=== PATIENT | female | born 1935 | race Caucasian/White ===

== ENCOUNTER 2021-08-02 17:31 | Inpatient (IN) | payer MEDICARE ==
[~2021-08-02] VITALS: Ht 157.5 cm; Wt 37.2 kg
[2021-08-02] MEDS ORDERED: 0.9% SODIUM CHLORIDE 10 ML SYRINGE IVP PRN (19:00)
[2021-08-02 19:37] LABS: BASOPHILS % (AUTO) 0.6 % (0.0-2.0); EOSINOPHILS % (AUTO) 1.5 % (1.0-6.0); HEMATOCRIT 36.9 % (36-46); HEMOGLOBIN 12.3 g/dL (12.0-16.0); LYMPHOCYTES # (AUTO) 1.5 K/uL (1.0-4.8); LYMPHOCYTES % (AUTO) 21.4 % (22.0-44.0); MEAN CORPUSCULAR HEMOGLOBIN 31.8 pg (26.0-34.0); MEAN CORPUSCULAR HGB CONC 33.3 G/dL (31.0-37.0); MEAN CORPUSCULAR VOLUME 96 fL (80-100); MONOCYTES # (AUTO) 0.6 K/uL (0.1-1.0); NEUTROPHILS # (AUTO) 4.7 K/uL (1.8-7.7); NEUTROPHILS % (AUTO) 67.5 % (40.0-70.0); PLATELET COUNT (AUTO) 174 K/uL (150-450); RED BLOOD CELL COUNT(AUTO) 3.85 MIL/uL (4.00-5.20); RED CELL DISTRIBUTION WIDTH 13.5 % (11.5-14.5)
[2021-08-02 19:44] LABS: ANION GAP 6 mmol/L (8-16); CALCIUM, TOTAL 9.1 mg/dL (8.8-10.5); CARBON DIOXIDE 29 mmol/L (22-29); CHLORIDE 105 mmol/L (98-107); CREATININE 0.95 mg/dL (0.60-1.30); GLOMERULAR FILTR. RATE CALC 56 mL/min (>60); GLUCOSE,RANDOM 99 mg/dL (70-110); POTASSIUM 3.6 mmol/L (3.5-5.1); SODIUM SERUM 140 mmol/L (136-145); UREA NITROGEN, BLOOD 28 mg/dL (7-18)
[2021-08-02 19:52] LABS: LACTIC ACID 1.1 mmol/L (0.4-2.0)
[2021-08-02 19:53] LABS: AMMONIA < 10 umol/L (11-32); TROPONIN I < 0.02 ng/mL (0.00-0.05)
[2021-08-02 20:04] LABS: B-TYPE NATRIURETIC PEPTIDE 146 pg/mL (0-100)
[2021-08-02 20:06] LABS: COVID AG,FIA SOURCE NASOPHARYNGEAL
[2021-08-02 20:08] LABS: ALANINE AMINOTRANSFERASE 29 U/L (12-78); ALBUMIN 3.4 g/dL (3.4-5.0); ALKALINE PHOSPHATASE 78 U/L (46-116); ASPARTATE AMINOTRANSFERASE 30 U/L (15-37); BILIRUBIN,TOTAL 0.4 mg/dL (0.1-1.0); CREATINE KINASE, TOTAL ONLY 451 U/L (26-192); FREE T4 (FREE THYROXINE) 0.97 ng/dL (0.76-1.46); LIPASE 302 U/L (73-393); THYROID STIMULATING HORMONE 2.14 uIU/mL (0.36-3.74); TOTAL PROTEIN, SERUM 6.7 g/dL (6.4-8.2)
[2021-08-02 20:50] LABS: APPEARANCE,URINE CLEAR (CLEAR); BILIRUBIN,URINE NEGATIVE (NEGATIVE); GLUCOSE, URINE (UA) NEGATIVE (NEGATIVE); KETONES,URINE NEGATIVE (NEGATIVE); LEUKOCYTE ESTERASE ,URINE NEGATIVE (NEGATIVE); NITRATE,URINE NEGATIVE (NEGATIVE); OCCULT BLOOD,URINE SMALL (NEGATIVE); PH,URINE 6.5 (5.0-8.0); PROTEIN,URINE NEGATIVE (NEGATIVE); UROBILINOGEN,URINE 0.2 mg/dL (<=1.0)
[2021-08-02 20:55] LABS: AMPHET/METH SCREEN,URINE NEGATIVE (NEGATIVE); BARBITURATE SCREEN, URINE NEGATIVE (NEGATIVE); BENZODIAZEPINES SCREEN,URINE NEGATIVE (NEGATIVE); CANNABINOID SCREEN,URINE NEGATIVE (NEGATIVE); COCAINE SCREEN,URINE NEGATIVE (NEGATIVE); METHADONE SCREEN, URINE NEGATIVE (NEGATIVE); OPIATE SCREEN,URINE NEGATIVE (NEGATIVE)
[2021-08-02 21:00] LABS: PHENCYCLIDINE SCREEN,URINE NEGATIVE (NEGATIVE)
[2021-08-02 21:01] LABS: BACTERIA,URINE Rare /HPF (None Seen); SQUAMOUS EPITHELIAL CELL,UR Few /LPF (None Seen); WBC,URINE 0-2 /HPF (0-5)
[2021-08-02] MEDS ORDERED: QUEtiapine FUMARATE 25 MG TABLET PO ONE (21:30)
[2021-08-02] MEDS ORDERED: ZIPRASIDONE MESYLATE 20 MG/VIAL IM ONE (22:45)
[2021-08-03 03:14] LABS: CHOLESTEROL 168 mg/dL (131-200); HDL CHOLESTEROL 82 mg/dL (40-60); LDL CHOL (CALC.) 80 mg/dL (0-130); TRIGLYCERIDES 31 mg/dL (15-150)
[2021-08-03 08:45] VITALS: BP 138/90
[2021-08-03] MEDS ORDERED: PETROLATUM,WHITE 28 GM JELLY TP PRN (12:45)
[2021-08-03] MEDS ORDERED: LOPERAMIDE HCL 2 MG CAPSULE PO PRN (12:45)
[2021-08-03] MEDS ORDERED: CloNIDine HCL 0.1 MG TABLET PO PRN (12:45)
[2021-08-03] MEDS ORDERED: ALBUTEROL SULFATE HFA 90 MCG/PUFF 8 GM INHALER IH PRN (12:45)
[2021-08-03] MEDS ORDERED: ONDANSETRON HCL 4 MG TABLET PO PRN (12:45)
[2021-08-03] MEDS ORDERED: NICOTINE 14 MG/24 HOUR PATCH TD PRN (12:45)
[2021-08-03] MEDS ORDERED: MAGNESIUM HYDROXIDE SUSPENSION 30 ML UDCUP PO PRN (12:45)
[2021-08-03] MEDS ORDERED: MAG HYDROX/AL HYDROX/SIMETH ES 30 ML SUSPENSION UDCUP PO PRN (12:45)
[2021-08-03] MEDS ORDERED: DOCUSATE SODIUM 100 MG CAPSULE PO PRN (12:45)
[2021-08-03] MEDS ORDERED: ACETAMINOPHEN 325 MG TABLET PO PRN (12:45)
[2021-08-03] MEDS ORDERED: GuaiFENesin/D-METHORPHAN [SUGAR-FREE] 200-20MG/10 ML SYRUP UDCUP PO PRN (12:45)
[2021-08-03 16:09] VITALS: BP 130/59
[2021-08-03 17:40] LABS: MAGNESIUM 2.1 mg/dL (1.80-2.40); PHOSPHORUS 3.8 mg/dL (2.5-4.9)
[2021-08-03] MEDS: IBUPROFEN 400 MG TABLET PO PRN (19:57)
[2021-08-03] MEDS: ATORVASTATIN CALCIUM 20 MG TABLET PO SCH (20:00)
[2021-08-04 06:32] VITALS: BP 168/93
[2021-08-04 08:59] VITALS: BP 152/81
[2021-08-04] MEDS ORDERED: HYDROCORTISONE 1% 30 GM CREAM TP PRN (10:15)
[2021-08-04] MEDS ORDERED: INFLUENZA VIRUS VACCINE QVS 2021-22 (6MO+)/PF 60 MCG/0.5 ML SYRINGE IM. ONE (14:15)
[2021-08-04] MEDS ORDERED: PNEUMOCOCCAL VACCINE POLYVALENT 0.5 ML VIAL [PPSV23] IM. ONE (14:15)
[2021-08-04] MEDS: QUEtiapine FUMARATE 100 MG TABLET PO PRN (16:10)
[2021-08-04 16:15] VITALS: BP 164/78
[2021-08-04] MEDS: IBUPROFEN 400 MG TABLET PO PRN (19:33)
[2021-08-04] MEDS: ATORVASTATIN CALCIUM 20 MG TABLET PO SCH (20:06)
[2021-08-05 00:50] VITALS: BP 155/87
[2021-08-05 08:30] VITALS: BP 162/82
[2021-08-05] MEDS: IBUPROFEN 400 MG TABLET PO PRN ×2 (10:35→11:20)
[2021-08-05] MEDS: QUEtiapine FUMARATE 100 MG TABLET PO PRN (11:19)
[2021-08-05 16:57] VITALS: BP 158/74
[2021-08-05] MEDS: ATORVASTATIN CALCIUM 20 MG TABLET PO SCH (20:54)
[2021-08-05] MEDS: ZOLPIDEM TARTRATE 10 MG TABLET PO PRN (20:55)
[2021-08-06 00:05] VITALS: BP 181/84
[2021-08-06] MEDS: LORazepam 1 MG TABLET PO PRN (00:28)
[2021-08-06 08:48] VITALS: BP 134/51
[2021-08-06 16:02] VITALS: BP 120/69
[2021-08-06] MEDS: ATORVASTATIN CALCIUM 20 MG TABLET PO SCH (20:42)
[2021-08-07 00:28] VITALS: BP 174/70
[2021-08-07 08:30] VITALS: BP 114/60
[2021-08-07] MEDS: BACITRACIN 28 GM OINTMENT TP SCH ×2 (12:31→16:47)
[2021-08-07 16:22] VITALS: BP 143/69
[2021-08-07] MEDS: ATORVASTATIN CALCIUM 20 MG TABLET PO SCH (20:36)
[2021-08-08 00:05] VITALS: BP 136/72
[2021-08-08] MEDS: ZOLPIDEM TARTRATE 10 MG TABLET PO PRN (00:15)
[2021-08-08] MEDS: BACITRACIN 28 GM OINTMENT TP SCH ×2 (08:17→16:17)
[2021-08-08 08:43] LABS: COVID AG,FIA SOURCE NASAL SWAB
[2021-08-08 09:03] VITALS: BP 144/63
[2021-08-08 16:29] VITALS: BP 151/78
[2021-08-08] MEDS: LORazepam 1 MG TABLET PO PRN (18:36)
[2021-08-08] MEDS: ATORVASTATIN CALCIUM 20 MG TABLET PO SCH (20:41)
[2021-08-09 04:32] VITALS: BP 149/80
[2021-08-09] MEDS: LORazepam 1 MG TABLET PO PRN (04:42)
[2021-08-09 08:20] VITALS: BP 169/88
[2021-08-09] MEDS: BACITRACIN 28 GM OINTMENT TP SCH ×2 (09:08→16:59)
[2021-08-09 12:04] VITALS: BP 121/54
[2021-08-09 16:24] VITALS: BP 141/70
[2021-08-09] MEDS: ATORVASTATIN CALCIUM 20 MG TABLET PO SCH (20:52)
[2021-08-10] MEDS: BACITRACIN 28 GM OINTMENT TP SCH ×2 (09:15→18:08)
[2021-08-10 16:18] VITALS: BP 152/82
[2021-08-10] MEDS: ATORVASTATIN CALCIUM 20 MG TABLET PO SCH (20:22)
[2021-08-11 04:54] VITALS: BP 148/79
[2021-08-11 08:22] VITALS: BP 141/56
[2021-08-11] MEDS: BACITRACIN 28 GM OINTMENT TP SCH ×2 (10:48→16:51)
[2021-08-11 16:06] VITALS: BP 149/67
[2021-08-11] MEDS: ATORVASTATIN CALCIUM 20 MG TABLET PO SCH (20:48)
[2021-08-12 02:50] VITALS: BP 147/79
[2021-08-12 09:21] VITALS: BP 140/78
[2021-08-12 16:39] VITALS: BP 100/65
[2021-08-12] MEDS: MELATONIN 5 MG TABLET PO SCH (20:20)
[2021-08-12] MEDS: ATORVASTATIN CALCIUM 40 MG TABLET PO SCH (20:20)
[2021-08-13 05:43] VITALS: BP 145/75
[2021-08-13 09:00] VITALS: BP 161/85
[2021-08-13] MEDS: BACITRACIN 28 GM OINTMENT TP SCH ×2 (10:28→17:29)
[2021-08-13] MEDS: SERTRALINE HCL 50 MG TABLET PO SCH (10:29)
[2021-08-13] MEDS: TRIAMCINOLONE 0.1% 15 GM CREAM TP SCH (10:29)
[2021-08-13] MEDS: LOSARTAN POTASSIUM 25 MG TABLET PO SCH (10:30)
[2021-08-13 17:15] VITALS: BP 105/77
[2021-08-13] MEDS: ATORVASTATIN CALCIUM 40 MG TABLET PO SCH (20:10)
[2021-08-13] MEDS: MELATONIN 5 MG TABLET PO SCH (20:10)
[2021-08-14 06:00] VITALS: BP 140/79
[2021-08-14] MEDS: TRIAMCINOLONE 0.1% 15 GM CREAM TP SCH (08:03)
[2021-08-14] MEDS: BACITRACIN 28 GM OINTMENT TP SCH ×2 (08:03→16:19)
[2021-08-14] MEDS: LOSARTAN POTASSIUM 25 MG TABLET PO SCH (08:04)
[2021-08-14] MEDS: SERTRALINE HCL 50 MG TABLET PO SCH (08:05)
[2021-08-14 09:12] VITALS: BP 135/87
[2021-08-14 16:03] VITALS: BP 149/79
[2021-08-14] MEDS: ATORVASTATIN CALCIUM 40 MG TABLET PO SCH (20:32)
[2021-08-14] MEDS: MELATONIN 5 MG TABLET PO SCH (20:32)
[2021-08-15 09:11] VITALS: BP 124/93
[2021-08-15] MEDS: LOSARTAN POTASSIUM 25 MG TABLET PO SCH (09:16)
[2021-08-15] MEDS: SERTRALINE HCL 50 MG TABLET PO SCH (09:16)
[2021-08-15] MEDS: TRIAMCINOLONE 0.1% 15 GM CREAM TP SCH (09:16)
[2021-08-15] MEDS: BACITRACIN 28 GM OINTMENT TP SCH ×2 (09:16→16:26)
[2021-08-15 16:04] VITALS: BP 103/77
[2021-08-15] MEDS: ATORVASTATIN CALCIUM 40 MG TABLET PO SCH (20:08)
[2021-08-15] MEDS: MELATONIN 5 MG TABLET PO SCH (20:09)
[2021-08-16 07:08] VITALS: BP 180/67
[2021-08-16] MEDS: LOSARTAN POTASSIUM 25 MG TABLET PO SCH (08:34)
[2021-08-16] MEDS: SERTRALINE HCL 50 MG TABLET PO SCH (08:34)
[2021-08-16] MEDS: BACITRACIN 28 GM OINTMENT TP SCH ×2 (08:35→17:11)
[2021-08-16] MEDS: TRIAMCINOLONE 0.1% 15 GM CREAM TP SCH (08:35)
[2021-08-16 13:28] LABS: COVID AG,FIA SOURCE NASOPHARYNGEAL
[2021-08-16 16:20] VITALS: BP 127/59
[2021-08-16] MEDS: MELATONIN 5 MG TABLET PO SCH (20:02)
[2021-08-16] MEDS: ATORVASTATIN CALCIUM 40 MG TABLET PO SCH (20:02)
[2021-08-17] MEDS: LOSARTAN POTASSIUM 25 MG TABLET PO SCH (08:08)
[2021-08-17] MEDS: SERTRALINE HCL 50 MG TABLET PO SCH (08:08)
[2021-08-17] MEDS: TRIAMCINOLONE 0.1% 15 GM CREAM TP SCH (08:09)
[2021-08-17] MEDS: BACITRACIN 28 GM OINTMENT TP SCH ×2 (08:09→16:29)
[2021-08-17 08:34] VITALS: BP 146/60
[2021-08-17 16:24] VITALS: BP 136/68
[2021-08-17] MEDS: MELATONIN 5 MG TABLET PO SCH (21:00)
[2021-08-17] MEDS: ATORVASTATIN CALCIUM 40 MG TABLET PO SCH (21:00)
[2021-08-17 22:45] VITALS: BP 185/74
[2021-08-17 23:21] VITALS: BP 158/86
[2021-08-18 01:28] VITALS: BP 150/76
[2021-08-18] MEDS: SERTRALINE HCL 50 MG TABLET PO SCH (08:21)
[2021-08-18] MEDS: TRIAMCINOLONE 0.1% 15 GM CREAM TP SCH (08:21)
[2021-08-18] MEDS: BACITRACIN 28 GM OINTMENT TP SCH ×2 (08:21→16:13)
[2021-08-18] MEDS: LOSARTAN POTASSIUM 25 MG TABLET PO SCH (08:22)
[2021-08-18 16:05] VITALS: BP 149/86
[2021-08-18] MEDS: ATORVASTATIN CALCIUM 40 MG TABLET PO SCH (21:00)
[2021-08-18] MEDS: MELATONIN 5 MG TABLET PO SCH (21:00)
[2021-08-19 05:13] VITALS: BP 136/73
[2021-08-19 08:25] VITALS: BP 156/70
[2021-08-19 08:45] LABS: GLUCOMETER DEV NAME(LOC) 3EX.; GLUCOSE,POINT OF CARE 151 MG/DL (70-110)
[2021-08-19] MEDS: LOSARTAN POTASSIUM 25 MG TABLET PO SCH ×2 (09:00→09:40)
[2021-08-19] MEDS: SERTRALINE HCL 50 MG TABLET PO SCH ×2 (09:00→09:39)
[2021-08-19] MEDS: BACITRACIN 28 GM OINTMENT TP SCH (09:40)
[2021-08-19] MEDS: TRIAMCINOLONE 0.1% 15 GM CREAM TP SCH (09:40)
[2021-08-19 10:43] LABS: BASOPHILS % (AUTO) 0.1 % (0.0-2.0); EOSINOPHILS % (AUTO) 0.2 % (1.0-6.0); HEMATOCRIT 45.7 % (36-46); LYMPHOCYTES # (AUTO) 1.2 K/uL (1.0-4.8); MEAN CORPUSCULAR HEMOGLOBIN 31.6 pg (26.0-34.0); MEAN CORPUSCULAR HGB CONC 32.8 G/dL (31.0-37.0); MEAN CORPUSCULAR VOLUME 97 fL (80-100); MONOCYTES # (AUTO) 0.9 K/uL (0.1-1.0); MONOCYTES % (AUTO) 6.1 % (2.0-9.0); NEUTROPHILS # (AUTO) 12.4 K/uL (1.8-7.7); PLATELET COUNT (AUTO) 266 K/uL (150-450); RED BLOOD CELL COUNT(AUTO) 4.74 MIL/uL (4.00-5.20); RED CELL DISTRIBUTION WIDTH 13.6 % (11.5-14.5)
[2021-08-19 10:47] LABS: NEUTROPHILS % (AUTO) 85.6 % (40.0-70.0)
[2021-08-19 10:55] LABS: CALCIUM, TOTAL 9.6 mg/dL (8.8-10.5); CREATININE 1.13 mg/dL (0.60-1.30); POTASSIUM 4.4 mmol/L (3.5-5.1)
[2021-08-19 13:52] LABS: APPEARANCE,URINE CLEAR (CLEAR); BILIRUBIN,URINE NEGATIVE (NEGATIVE); GLUCOSE, URINE (UA) NEGATIVE (NEGATIVE); KETONES,URINE NEGATIVE (NEGATIVE); LEUKOCYTE ESTERASE ,URINE NEGATIVE (NEGATIVE); NITRATE,URINE NEGATIVE (NEGATIVE); OCCULT BLOOD,URINE NEGATIVE (NEGATIVE); PH,URINE 5.5 (5.0-8.0); PROTEIN,URINE NEGATIVE (NEGATIVE); UROBILINOGEN,URINE 0.2 mg/dL (<=1.0)
== END 2021-08-19 14:37 | disposition short-term general hospital (02) | DRG 885 ==
LOC: EMS 17:31 → 3EX 08-03 05:00
PROVIDERS: ADMIT Psychiatry & Neurology Child & Adolescent Psychiatry; ATTEND Psychiatry & Neurology Child & Adolescent Psychiatry
DX: F33.2 Major depressive disorder, recurrent severe without psychotic features (principal); E43 Unspecified severe protein-calorie malnutrition; M62.82 Rhabdomyolysis; Z68.1 Body mass index [BMI] 19.9 or less, adult; R45.851 Suicidal ideations; G93.40 Encephalopathy, unspecified; E87.0 Hyperosmolality and hypernatremia; E86.0 Dehydration; E78.5 Hyperlipidemia, unspecified; Z20.822 Contact with and (suspected) exposure to COVID-19; I10 Essential (primary) hypertension; E78.00 Pure hypercholesterolemia, unspecified; I48.91 Unspecified atrial fibrillation; Z59.00 Homelessness unspecified
CPT/HCPCS: 70450; 71045; 80048; 80053; 80061; 81001; 81003; 82140; 82550; 82962; 83605; 83690; 83735; 83880; 84100; 84145; 84439; 84443; 84484; 85025; 85610; 86850; 86900; 86901; 87040; 93005; 99285; G0378; G0480; J3486; Q0162; Q9967; 36415-L1; 36415-TC

== ENCOUNTER 2021-08-19 14:26 | Inpatient (IN) | payer MEDICARE ==
[2021-08-19] MEDS ORDERED: MAGNESIUM HYDROXIDE SUSPENSION 30 ML UDCUP PO PRN (14:45)
[2021-08-19] MEDS ORDERED: CloNIDine HCL 0.1 MG TABLET PO PRN (14:45)
[2021-08-19] MEDS ORDERED: ACETAMINOPHEN 325 MG TABLET PO PRN (14:45)
[2021-08-19 15:00] VITALS: BP 149/71
[2021-08-19] MEDS: SODIUM CHLORIDE 0.45% 1,000 ML IV SCH (18:18)
[2021-08-19] MEDS: HEPARIN SODIUM,PORCINE 5,000 UNITS/ML VIAL SQ SCH (18:19)
[2021-08-19 19:15] VITALS: BP 147/78
[2021-08-19] MEDS ORDERED: ATORVASTATIN CALCIUM 40 MG TABLET PO SCH (21:00)
[2021-08-19] MEDS ORDERED: MELATONIN 5 MG TABLET PO SCH (21:00)
[2021-08-19] MEDS: BACITRACIN 28 GM OINTMENT TP SCH (23:15)
[2021-08-20] MEDS: HEPARIN SODIUM,PORCINE 5,000 UNITS/ML VIAL SQ SCH ×3 (00:21→17:07)
[2021-08-20 04:25] VITALS: BP 145/79
[2021-08-20] MEDS: SODIUM CHLORIDE 0.45% 1,000 ML IV SCH ×3 (04:48→18:33)
[2021-08-20 07:54] LABS: BASOPHILS % (AUTO) 1.4 % (0.0-2.0); EOSINOPHILS % (AUTO) 0 % (1.0-6.0); HEMATOCRIT 46.1 % (36-46); LYMPHOCYTES # (AUTO) 0.8 K/uL (1.0-4.8); LYMPHOCYTES % (AUTO) 3.9 % (22.0-44.0); MEAN CORPUSCULAR HEMOGLOBIN 31.4 pg (26.0-34.0); MEAN CORPUSCULAR HGB CONC 32.5 G/dL (31.0-37.0); MEAN CORPUSCULAR VOLUME 97 fL (80-100); MONOCYTES # (AUTO) 1.4 K/uL (0.1-1.0); MONOCYTES % (AUTO) 7.2 % (2.0-9.0); NEUTROPHILS # (AUTO) 17.4 K/uL (1.8-7.7); PLATELET COUNT (AUTO) 306 K/uL (150-450); RED BLOOD CELL COUNT(AUTO) 4.78 MIL/uL (4.00-5.20); RED CELL DISTRIBUTION WIDTH 13.8 % (11.5-14.5)
[2021-08-20 08:00] VITALS: BP 146/93
[2021-08-20 08:08] LABS: CALCIUM, TOTAL 9.7 mg/dL (8.8-10.5); CREATININE 1.39 mg/dL (0.60-1.30); POTASSIUM 4.5 mmol/L (3.5-5.1)
[2021-08-20 08:20] LABS: NEUTROPHILS % (AUTO) 87.5 % (40.0-70.0)
[2021-08-20] MEDS ORDERED: SERTRALINE HCL 50 MG TABLET PO SCH (09:00)
[2021-08-20] MEDS ORDERED: ASPIRIN 81 MG CHEWABLE TABLET PO SCH (09:00)
[2021-08-20] MEDS ORDERED: TRIAMCINOLONE 0.1% 15 GM CREAM TP SCH (09:00)
[2021-08-20] MEDS ORDERED: FAMOTIDINE 20 MG TABLET PO SCH (09:00)
[2021-08-20] MEDS ORDERED: CefTRIAXone 1 GM/DEXTROSE 50 ML IV SCH (09:00)
[2021-08-20] MEDS ORDERED: *CLINICAL-LEVOFLOXACIN IVPB DOSING CLINICAL ONE (09:00)
[2021-08-20] MEDS ORDERED: LOSARTAN POTASSIUM 25 MG TABLET PO SCH (09:00)
[2021-08-20] MEDS ORDERED: LEVOFLOXACIN 750 MG/D5% WATER 150 ML IV ONE (10:00)
[2021-08-20] MEDS: MORPHINE SULFATE 2 MG/ML SYRINGE IVP PRN ×2 (10:47→18:32)
[2021-08-20 11:43] VITALS: BP 117/72
[2021-08-20] MEDS: BACITRACIN 28 GM OINTMENT TP SCH (12:35)
[2021-08-20 16:33] VITALS: BP 120/76
[2021-08-22] MEDS ORDERED: LEVOFLOXACIN 500 MG/D5% WATER 100 ML IV SCH (08:00)
[2021-08-22 12:00] LABS: GLUCOMETER DEV NAME(LOC) 6S.1; GLUCOSE,POINT OF CARE 169 MG/DL (70-110)
== END 2021-08-20 19:15 | DRG 871 ==
LOC: 6S 15:21 → 5S 08-20 08:00
PROVIDERS: ADMIT Internal Medicine; ATTEND Internal Medicine
DX: A41.9 Sepsis, unspecified organism (principal); E43 Unspecified severe protein-calorie malnutrition; G93.41 Metabolic encephalopathy; J69.0 Pneumonitis due to inhalation of food and vomit; J96.91 Respiratory failure, unspecified with hypoxia; E87.0 Hyperosmolality and hypernatremia; R64 Cachexia; F03.90 Unspecified dementia, unspecified severity, without behavioral disturbance, psychotic disturbance, mood disturbance, and anxiety; R62.7 Adult failure to thrive; F17.210 Nicotine dependence, cigarettes, uncomplicated; F32.9 Major depressive disorder, single episode, unspecified; I10 Essential (primary) hypertension; I46.9 Cardiac arrest, cause unspecified; Z66 Do not resuscitate; Z79.899 Other long term (current) drug therapy
CPT/HCPCS: 71045; 80048; 82962; 84484; 85025; 85379; 93005; J0696; J1644; J1956; J2270; Q9967; 36415-L1; 36415-TC